=== PATIENT | female | born 1945 | race Caucasian/White ===

== ENCOUNTER → 2017-10-04 | Outpatient (CLI) | payer OTHER ==
[~2017-10-04] MED LIST: ALEVE220 M1 PO; ASPI-COR81 M3 PO; ASPIR 8181 MG PO; CLINDAMYCIN300 M1 PO; FLA500 PO; GLIPIZIDE5 M2 PO; HEP-FORTE1 CAP PO; HYDROCHLOROTHIA25 MG PO; KLOR-CON 1010 MEQ PO; KLOR-CON M2020 MEQ PO; LAC PO; LATANOPROST2.5 ML OU; LEVAQUIN250 MG PO; LEVAQUIN500 MG PO; LEVOTHROID0.075 MG PO; LEVOTHYROXIN0.075 M2 PO; LISINOPRIL40 MG PO; MAC100 PO; MAG-OX 400400 MG PO; MAGNESIUM OXID400 MG PO; METFORMIN HCL850 MG PO; METFORMIN500 M1 PO; METFORMIN850 M1 PO; METOPROLOL TART25 M1 PO; MOVE FREE JOIN1 EACH PO; MULTI-VITAMINS1 TAB PO; POTASSIUM CHLO10 MEQ PO; SIMVASTATIN20 M1 PO; TRENTAL400 MG PO; VITAMIN C PUR1000 M1 PO; ZESTRIL40 MG PO
== END | disposition home or self-care (01) ==
LOC: MA 08:53
PROC: BH02ZZZ Plain Radiography of Bilateral Breasts (ICD-10-PCS; principal; 2017-10-04)
DX: Z12.31 Encounter for screening mammogram for malignant neoplasm of breast (principal)
CPT/HCPCS: G0202

== ENCOUNTER → 2017-10-18 | Outpatient (CLI) | payer OTHER | END | disposition home or self-care (01) | LOC: MA 12:59 | PROC: BH02ZZZ Plain Radiography of Bilateral Breasts (ICD-10-PCS; principal; 2017-10-18) | DX: R92.8 Other abnormal and inconclusive findings on diagnostic imaging of breast (principal) | CPT/HCPCS: 77065 ==

== ENCOUNTER → 2018-05-01 | Outpatient (CLI) | payer OTHER | END | disposition home or self-care (01) | LOC: MA 12:38 | PROC: BH00ZZZ Plain Radiography of Right Breast (ICD-10-PCS; principal; 2018-05-01) | DX: R92.8 Other abnormal and inconclusive findings on diagnostic imaging of breast (principal) | CPT/HCPCS: 77065 ==